=== PATIENT | female | born 1995 | race Caucasian/White ===

== ENCOUNTER 2017-02-20 13:11 | Emergency (ER) | payer BC ==
[~2017-02-20 13:11] MED LIST: VYVANSE70 M1 PO
[2017-02-20] MEDS ORDERED: CYCLOBENZAPRINE5 M1 PO (15:21)
[2017-02-20] MEDS ORDERED: IBUPROFEN400 M1 PO (15:21)
== END 2017-02-20 15:32 ==
LOC: EDMED 13:11
DX: S09.90XA Unspecified injury of head, initial encounter (principal); M54.2 Cervicalgia; V49.40XA Driver injured in collision with unspecified motor vehicles in traffic accident, initial encounter